=== PATIENT | female | born 1955 | race Caucasian/White ===

== ENCOUNTER → 2022-11-03 09:28 | Outpatient (BNVA) | payer OTHER, SELFPAY | PROVIDERS: PCP Internal Medicine; Visit Provider Internal Medicine Rheumatology | DX: Z13.89 Encounter for screening for other disorder (principal) ==

== ENCOUNTER 2022-11-03 10:39 | Outpatient (REF) | payer OTHER, SELFPAY ==
[2022-11-03 13:18] LABS: MANUAL DIFF FLAG NO
[2022-11-03 13:30] LABS: Basophils Absolute Auto 0.1 X10*3/uL (0.0-0.2); Basophils Percent Auto 1.1 % (0-2); Eosinophils Absolute Auto 0.4 X10*3/uL (0.0-0.4); Eosinophils Percent Auto 6.5 % (0-4); Hematocrit 43.1 % (37.0-47.0); Hemoglobin 14.3 g/dl (12.0-16.0); Imm Gran Abs Auto 0.02 X10*3/uL (0.00-0.03); Imm Gran Pct Auto 0.3 % (0.0-0.4); Lymphocytes Absolute Auto 1.9 X10*3/uL (1.2-4.9); Lymphocytes Percent Auto 30.6 % (20-40); Mean Corpuscular HGB Conc 33.2 g/dl (31.0-35.0); Mean Corpuscular Hemoglobin 30.6 pg (27.0-33.0); Mean Corpuscular Volume 92.3 fL (80.0-98.0); Mean Platelet Volume 10.8 fL (9.4-12.3); Monocytes Absolute Auto 0.5 X10*3/uL (0.1-1.2); Monocytes Percent Auto 8.7 % (2-11); Neutrophils Absolute Auto 3.3 x10*3/uL (2.0-8.3); Neutrophils Percent Auto 52.8 % (45-73); Platelet Count 196 X10*3/uL (160-400); Red Blood Count 4.67 X10*6/uL (4.20-5.50); Red Cell Distribution Width 12.4 % (11.0-16.0); White Blood Count 6.2 X10*3/uL (4.8-10.8)
[2022-11-03 14:13] LABS: Erythrocyte Sedimentation Rate 7 MM/HR (0-20)
[2022-11-03 17:59] LABS: C Reactive Protein 0.26 mg/dL (< or = 0.50); Iron 111 mcg/dL (30-160); Percent Iron Saturation 38 % (15-50); Total Iron Binding Capacity 293 mcg/dL (228-428); Unsaturated Iron Binding 182 ug/dL
== END 2022-11-03 10:40 | disposition home or self-care (01) ==
LOC: HO.10HDL 10:39
PROVIDERS: Visit Provider Internal Medicine Rheumatology
DX: R53.83 Other fatigue (principal); M79.7 Fibromyalgia
CPT/HCPCS: 36415; 83540; 85025; 85652; 86140

== ENCOUNTER 2025-07-26 14:29 | Outpatient (AMB) | payer OTHER, MEDICAID, SELFPAY ==
--- NOTE | 2025-07-26 14:34 | MHC.OFFVIS ---
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 She reports a 5-year history of pain due to arthritis and fibromyalgia, affecting her lower back, neck, bilateral knees, and sacroiliac joints. The pain is most severe in the morning and evenings, rated 8 out of 10, and improves to a 5-6 out of 10 in the afternoon. Exacerbating factors include movements, prolonged standing, bending, cold weather changes, walking, and climbing stairs. She finds some relief with heat, oral medications, and topical medications. Her current medications include Cymbalta and trazodone for fibromyalgia, a muscle relaxer, Tylenol, Fibrocomplex, and diclofenac gel. She previously discontinued gabapentin due to adverse reactions and used to receive injections in her neck from another pain specialist. Past medical history is significant for anxiety, depression, obesity, osteopenia, migraine headaches, and prediabetes. She also has bilateral lower extremity venous insufficiency with edema, managed with compression stockings and Lasix. Associated symptoms include constant fatigue, limited physical activity due to pain, and dyspnea on exertion when climbing stairs. She recently had cervical and lumbar spine x-rays which she reports showed moderate to severe arthritis, foraminal narrowing, bone spurs, and narrowed discs, particularly in the lumbar region. She has not had an MRI, as Neurosurgery recommended physical therapy first. She has orders for physical therapy but has not yet started. Pain Description - Onset: Approximately 5 years. - Location: Lower back, neck, bilateral knees, SI joints, and diffuse pain secondary to fibromyalgia. - Quality: Described as stabbing, aching, and burning. - Severity: 8/10 in the mornings and evenings, improves to 5-6/10 in the afternoon and with medication. - Exacerbating Factors: Movements, weather changes, walking, climbing stairs, and lifting heavy objects. - Relieving Factors: Heat, oral medications, and topical medications provide some improvement. - Radiation: Back pain radiates across the back but not into the legs. - Associated Symptoms/Interference: Pain limits physical activity and causes constant fatigue. Pain Management - Affect: Patient reports constant fatigue and has a history of anxiety and depression. - Analgesia: She is currently taking Cymbalta, trazodone, a muscle relaxer, Tylenol, and uses diclofenac gel. - Adverse Effects: She discontinued gabapentin due to adverse reactions. - Activities of Daily Living: Her pain limits physical activity and ability to lift heavy items. - Aberrant Drug-Related Behaviors: No aberrant behaviors were noted or discussed. [facility] Medical History Hx of ectopic Rupture of medial ligament of right ankle Nondisplaced fracture of fifth metatarsal bone, right foot, subsequent encounter for fracture with routine healing Surgical History H/O section Family History Mother Diabetes Stroke HTN (hypertension) Glaucoma Breast cancer Arthritis Skin cancer Father Heart disease Small bowel problem Diabetes Sister No problems noted. Social History Household Members: Children Alcohol intake: current Patient Tobacco Use Status: Never used Tobacco e-Cigarette/Vaping Use: Never Used Review of Systems Narrative - Constitutional: Reports constant fatigue. - Respiratory: Reports dyspnea after climbing stairs. - Cardiovascular: Reports bilateral lower extremity edema. - Musculoskeletal: Reports chronic pain in the lower back, neck, bilateral knees, and SI joints, as well as diffuse pain from fibromyalgia. - Neurological: Reports an increase in tension headaches. - Psychiatric: Reports a history of anxiety and depression. Const All systems reviewed & are unremarkable except as noted in HPI and below Physical Exam Vital Signs: Last Vital Signs Pulse 83 07/26/25 14:38 BP 161/87 H 07/26/25 14:38 Pulse Ox 99 07/26/25 14:38 Oxygen Delivery Method Room Air 07/26/25 14:38 BMI result Body Mass Index 39.0 General: Appears afebrile. Alert and oriented. Mood and affect appropriate. Follows and participates in conversation appropriately. Respiratory effort is unlabored. No cough. Able to transition from sit to stand unassisted. Mild to moderate pain on rising from a seated position. Ambulates with bilaterally normal heel strike and toe off. Neck Neck: Yes normal visual inspection, Yes no lymphadenopathy, Yes supple, No anterior neck swelling, Yes no JVD, No prominent supraclavicular fat pad and Yes prominent dorsocervical fat pad General: Yes no CVA tenderness Back/Spine/Pelvis Other: Limited cervical and lumbar ROM due to pain. Pain is elicited with forward flexion of the lumbar spine. Range of cervical motion shows pain with cervical extension, mainly on the right side, and a pulling sensation with flexion. 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 Discomfort reported in the knee and hip with active range of motion. Straight leg raise test elicits pain in the hamstrings and back bilaterally. Demonstrates 5/5 strength of quadriceps bilaterally as well as flexion/dorsiflexion of bilateral feet against resistance. 2+ pedal pulses bilaterally. +1 patellar and achilles reflexes bilaterally. Facet loading test positive bilaterally. [place]?s, Pelvic compression and Stinchfield tests are negative bilaterally. No groin pain with I/E hip rotations. Valsalva maneuver negative. Back: no CVA tenderness Cervical Spine: cervical ROM normal, cervical muscular tenderness, pain with cervical ROM, Cervical spine tenderness and No step off deformity Thoracic/Lumbar Spine: thoracic and lumbar spine normal to inspection, No Thoracic/lumbar spine scar(s), Lasegue's sign negative, straight leg raise negative bilaterally, pain with thoraco-lumbar ROM, thoraco-lumbar ROM limited, No thoracic spinal tenderness and lumbar spinal tenderness at L4 and at L5 Sacroiliac joints: bilaterally nontender Extrem General: Yes capillary refill normal, Yes no clubbing, cyanosis or edema and Yes no calf tenderness Results Reviewed Results Reviewed: - Imaging: Patient reports recent cervical and lumbar spine X-rays showed moderate to severe arthritis, foraminal narrowing, bone spurs, and narrowed discs, especially in the lumbar area. - Labs: Patient reports a status of prediabetes, noting that her A1c is normal but her blood sugar was previously high. Assessment & Plan Assessment & Plan (1) Osteoarthritis of lumbar spine: Code(s): M47.816 - Spondylosis without myelopathy or radiculopathy, lumbar region Category: Medical (2) Fibromyalgia: Code(s): M79.7 - Fibromyalgia Category: Medical (3) Obesity: Code(s): E66.9 - Obesity, unspecified Category: Medical (4) Cervical spondylosis: Code(s): M47.812 - Spondylosis without myelopathy or radiculopathy, cervical region Category: Medical (5) Cervicogenic headache: Code(s): G44.86 - Cervicogenic headache Category: Medical (6) Vertebrogenic low back pain: Code(s): M54.51 - Vertebrogenic low back pain Category: Medical (7) Muscle spasms of neck: Code(s): M62.838 - Other muscle spasm Category: Medical Plan The plan is to obtain the patient's recent cervical and lumbar spine x-ray reports from [facility]. The patient will begin a course of physical therapy for both her neck and back, for which she already has orders. A follow-up appointment will be scheduled after she completes PT. Interventional pain management options were discussed as the next step, depending on the response to conservative therapy. For arthritic pain, medial branch blocks may be performed as a diagnostic procedure; a positive response would make her a candidate for radiofrequency ablation (RFA). Peripheral nerve stimulation (Sprint) was also presented as an option, particularly for her neck and associated cervicogenic headaches. The Intracept procedure for discogenic pain was discussed too. She was provided with informational brochures on the discussed procedures and encouraged to focus on weight optimization for her joint health. All questions and concerns have been answered and patient agreed with the treatment plan. Follow up after PT and sooner as needed. Patient was informed and verbally consented to the use of an ambient scribe for clinic note documentation during this visit. Coding Level of Care Code New Pt Level 4 (39558) Diagnoses Osteoarthritis of lumbar spine M47.816 Fibromyalgia M79.7 Obesity E66.9 Cervical spondylosis M47.812 Cervicogenic headache G44.86 Vertebrogenic low back pain M54.51 Muscle spasms of neck M62.838
[2025-07-26 14:38] VITALS: BP 161/87; PULSE 83; O2SAT 99; BMI 39.0
--- OUTSIDE RECORDS SUMMARY | 2025-07-26 18:36 | XMS_ITS | Clinical Summary ---
Author Organization [facility] [address] [place] [address] [place] [address] Phone Care Team Providers Care General Operations Manager Name Role Phone Zeke Zuniga MD Primary Care Provider Allergies No known active allergies Medications acetaminophen (TYLENOL 8 HOUR) 650 mg 8 hr tablet Take 1 tablet (650 mg total) by mouth every 8 (eight) hours if needed. Active melatonin 10 mg tablet Take 2 tablets (20 mg total) by mouth at bedtime. Active multivit-min/ir on/folic acid/K (ADULTS MULTIVITAMIN ORAL) Take 1 tablet by mouth. Active omeprazole (PriLOSEC) [address] capsule Take 1 capsule (20 mg total) by mouth 1 (one) time each day. 09/28/19 15 Active TURMERIC ORAL Take 2,000 mg by mouth 1 (one) time each day. Active rizatriptan (MAXALT) 10 mg tablet Take 1 tablet (10 mg total) by mouth 1 (one) time if needed for migraine. May repeat in 2 hours if needed (from [facility]) 09/26/19 25 Active levETIRAcetam (KEPPRA) 500 mg tablet Take 2.5 tablets (1,250 mg total) by mouth 2 (two) times a day. (from [facility]) 09/26/19 25 Active propranoloL (INDERAL) 10 mg tablet Take 3 tablets (30 mg total) by mouth 2 (two) times a day. (from [facility]) 09/26/19 25 Active calcium carbonate-srikanth calciferol (Calcium 500 + D) 500 mg-10 mcg (400 unit) per tablet Take 1 tablet by mouth 2 (two) times a day. 180 tablet 1 09/26/19 25 Active atorvastatin (LIPITOR) 10 mg tablet Take 1 tablet (10 mg total) by mouth 1 (one) time each day. 90 tablet 1 01/30/20 25 Active diclofenac (VOLTAREN) 1 % topical gel Apply 2 g topically 2 (two) times a day if needed (pain). 100 g 3 01/30/20 25 Active furosemide (LASIX) 20 mg tablet Take 1 tablet (20 mg total) by mouth 1 (one) time each day if needed (leg swelling). 30 each 3 01/30/20 25 026 Active amLODIPine (NORVASC) 5 mg tablet TAKE 1 TABLET BY MOUTH EVERY DAY ALONG WITH 2.5 MG 90 tablet 1 03/21/20 25 Active amLODIPine (NORVASC) 2.5 mg tablet Take 1 tablet (2.5 mg total) by mouth 1 (one) time each day. Please take with 5 mg tablets for total of 7.5 mg daily. 90 tablet 1 03/21/20 25 Active traZODone (DESYREL) 100 mg tablet Take 1 tablet (100 mg total) by mouth at bedtime. at bedtime 90 tablet 1 06/06/20 25 Active cyclobenzaprine (FLEXERIL) 10 mg tablet Take 1 tablet (10 mg total) by mouth at bedtime as needed for muscle spasms. 30 tablet 07/02/20 25 026 Active DULoxetine (CYMBALTA) [address] capsule Take 1 capsule (20 mg total) by mouth 2 (two) times a day. 180 capsule 1 07/11/20 25 Active DULoxetine (CYMBALTA) [address] capsule Take 1 capsule (20 mg total) by mouth 2 (two) times a day. 180 capsule 1 01/09/20 25 025 Discontinued(Re order) cyclobenzaprine (FLEXERIL) 5 mg tablet TAKE 1 TABLET(5 MG) BY MOUTH AT BEDTIME NEEDED FOR MUSCLE SPASMS 30 tablet 06/19/20 25 025 Discontinued(Do se adjustment) tirzepatide (Mounjaro) 2.5 mg/0.5 mL injectionIndica tions:Class 2 obesity due to excess calories with body mass index (BMI) of 38.0 to 38.9 in adult, unspecified whether serious comorbidity present,Prediab etes Inject 0.5 mL (2.5 mg total) under the skin every 7 (seven) days. 2 mL 07/11/20 25 025 Discontinued amitriptyline (ELAVIL) 25 mg tablet Take 1 tablet (25 mg total) by mouth. 025 Discontinued sertraline (ZOLOFT) 50 mg tablet Take 1.5 tablets (75 mg total) by mouth 1 (one) time each day. 04/25/20 24 025 Discontinued Active Problems Problem Noted Date Diagnosed Date Primary hypertension 06/26/2024 Assessment & Plan (01/29/2025 8:23 PM EDT): Orders: Comprehensive metabolic panel; Future Assessment & Plan (09/15/2024 9:47 AM EST): Pressure in the office today stable. She will continue with amlodipine 7.5 mg daily. Continue to check blood pressure regularly call office if any issues. Spondylosis of cervical peter on without myelopathy or radiculopathy 08/20/2023 Assessment & Plan (07/20/2025 4:15 PM EST): Patient describes approximately 4 year history of neck pain that radiates to the shoulders, pain right upper trapezius, tenderness left lateral shoulder. She denies any radicular arm pain, numbness tingling, weakness. No particular inciting event. Subjectively she feels like her arms and legs are weak, is not sure if it is related to her fibromyalgia which was officially diagnosed about 5 years ago. She has tried [id number] conservative treatments, goes for massages twice a month which are very helpful. Patient had C-spine x-rays 07/02/2025 that showed disc space narrowing at C4-5 >C5-6 and C6-7 with associated mild anterior endplate spurring. Multilevel facet arthropathy. I reviewed x-rays with patient on the computer. Ms. Jendrysik has chronic neck pain and stiffness, we talked about conservative treatment options for her arthritis like PT, aquatic PT, acupuncture, injections. She would like to start with PT, cannot afford acupuncture [id number] and is not covered by her insurance. Prescription given to patient. I asked her to call with update after PT, if she is not getting better I will order cervical MRI. Assessment & Plan (01/29/2025 8:23 PM EDT): Spondylosis of lumbar region without myelopathy or radiculopathy 08/20/2023 Assessment & Plan (07/20/2025 4:26 PM EST): Patient states her low back pain is fairly equal but probably worse than her neck pain. She would rated her pain 7/10. She recalls years ago having musculoskeletal injury after being hard at work, had spasm for a while. However in the last 5 years she has had more severe chronic back pain, denies radicular leg pain, numbness tingling, notes subjective weakness in the legs. Sitting flares up her pain, she does well when she is partially reclined, however pain much worse with bending, lifting, standing and walking. In the past she tried pool exercise classes which seem to flareup some of her low back pain. She has tried Tylenol arthritis which takes the edge off her pain, Flexeril as needed, heat, lidocaine patches with no significant improvement. In the past she tried gabapentin but had negative side effects, when she was on it did not see improvement in her symptoms. She is on Cymbalta for her fibromyalgia, a couple days went without it and noted worsening symptoms, knows it is doing something to help her pain. She had lumbar spine x-rays 07/02/2025 that shows Moderate/severe disc space narrowing at L2-3 through L5-S1. Multilevel endplate spurring. Multilevel facet arthropathy. I reviewed images with patient on the computer. Patient has chronic low back pain worsening with time, on x-ray multilevel degenerative changes, we talked about conservative treatment options for her arthritis like PT, aquatic PT, acupuncture, injections. Prescription given to patient. We talked about the importance of doing the PT exercises and stretches at home as well. I asked her to call with update after PT, if she is not getting better I will order lumbar MRI. Patient describes symptoms consistent with vertebrogenic back pain, if we get MRI we we will need to check for Modic changes, see if she is a candidate for Intracept procedure. Assessment & Plan (01/29/2025 8:23 PM EDT): Mixed hyperlipidemia 07/24/2021 Assessment & Plan (01/29/2025 8:23 PM EDT): Orders: Comprehensive metabolic panel; Future Lipid panel with reflex to direct LDL; Future Fibromyalgia 04/13/2021 Overview (05/16/2024): Rheumatology evaluation 2020 Assessment & Plan (01/29/2025 8:23 PM EDT): Orders: Comprehensive metabolic panel; Future Assessment & Plan (09/15/2024 9:47 AM EST): Patient is currently on Cymbalta 40 mg daily. She was previously referred to rheumatology and I gave her the number to schedule an appointment. Patient was encouraged to increase routine activity. Orders: Thyroid stimulating hormone with reflex to free t4 and free t3; Future CBC and differential; Future Magnesium; Future Comprehensive metabolic panel; Future Hemoglobin A1c; Future Nondisplaced fracture of fif th metatarsal bone, right foot, subsequent encounter for fracture with routine healing 01/10/2021 Sprain of anterior talofibular ligament of right ankle 01/10/2021 Obesity (BMI 30-39.9) 05/06/2020 Anxiety and depression 02/14/2018 Assessment & Plan (01/29/2025 8:23 PM EDT): Orders: Comprehensive metabolic panel; Future Assessment & Plan (09/15/2024 9:47 AM EST): Today depression is under control. I will decrease Zoloft from 75 to 50 mg daily. She will reach out to the office if she has any issues with decreased dose. Constipation 02/05/2016 Insomnia 02/05/2016 Assessment & Plan (01/29/2025 8:23 PM EDT): Orders: Comprehensive metabolic panel; Future GERD (gastroesophageal reflux disease) 5 Migraines 09/18/2014 Overview (05/16/2024): Sleep study - 01/18/15 - no evidence of sleep disordered breathing, sleep efficiency of 98% Dr. Lewis - 02/14/15 - status post injections or multifocal muscle spasms, continue Keppra, Maxalt; Medrol Dosepak once or twice a year as needed 07/16/15-trigger point injections; follow-up 4 weeks 08/20/15 - continue stretching and medications; follow-up 6 months 11/17/16 - continue stretching, increase levetiracetam, consider Remeron and decreasing trazodone; follow-up in 09/30/17 - stretching, increase levetiracetam, consider starting mirtazapine and decreasse trazodone; f/u 6 months 04/05/18 - continue medications; follow-up 6 months 05/17/18 - migraine flare; nerve block; increase levetiracetam; follow-up in 6 months 06/02/18 - her head CT was normal; follow-up 6 months 11/29/18 - Relpax 40 mg as needed for migraines, continue other medications; follow-up 6 months 09/04/2019 - Aimovig 140 mg subcutaneous injection, Maxalt for breakthrough headaches; follow-up 4 months Assessment & Plan (01/29/2025 8:23 PM EDT): Orders: Comprehensive metabolic panel; Future Osteopenia 09/18/2014 Overview (05/16/2024): 11/21 - osteopenia; drug holiday off of Fosamax, repeat bone density examination in 2 years 05/25 - osteopenia Assessment & Plan (01/29/2025 8:23 PM EDT): Orders: Comprehensive metabolic panel; Future Encounters Date Type Department Care Team Description 07/26/2025 Telephone Bariatric Surgery - [address] [place] [phone] Dwight Irizarry MD 07/20/2025 2:45 PM EST Office Visit Neurosurgery [facility] [address] [facility] [address] [place] [phone] Kelly Mckeon PA Spondylosis of cervical region without myelopathy or radiculopathy (Primary Dx); Spondylosis of lumbar region without myelopathy or radiculopathy 07/11/2025 3:00 PM EST Office Visit Bariatric Surgery [facility] [address] [facility] [address] [place] [address] Dwight Irizarry MD Class 2 obesity due to excess calories with body mass index (BMI) of 38.0 to 38.9 in adult, unspecified whether serious comorbidity present (Primary Dx); Prediabetes 07/03/2025 Results Follow-Up Adult [address] [phone] Key Rivera PA 07/02/2025 11:02 AM EST - 07/02/2025 11:59 PM EST Hospital Encounter [address] [phone] Spondylosis of cervical region without myelopathy or radiculopathy; Spondylosis of lumbar region without myelopathy or radiculopathy Discharge Disposition: Home or Self Care 07/02/2025 11:02 AM EST - 07/02/2025 11:59 PM EST Hospital Encounter [address] [phone] Spondylosis of cervical region without myelopathy or radiculopathy; Spondylosis of lumbar region without myelopathy or radiculopathy Discharge Disposition: Home or Self Care 07/02/2025 10:30 AM EST Office Visit Adult [address] [phone] Key Rivera PA Primary hypertension (Primary Dx); Mixed hyperlipidemia; Fibromyalgia; Anxiety and depression; Chronic migraine with aura without status migrainosus, not intractable; Osteopenia, unspecified location; Spondylosis of cervical region without myelopathy or radiculopathy; Spondylosis of lumbar region without myelopathy or radiculopathy; Obesity, morbid ([facility] V24, [facility] V28) 06/05/2025 10:00 AM EDT Clinical Support [address] [phone] Visit for suture removal (Primary Dx) 05/24/2025 10:30 AM EDT Procedure visit [address] [phone] Chinedu Duarte MD Pilar cyst (Primary Dx) 05/11/[address] [phone] Chinedu Duarte MD from Last 3 Months Immunizations Immunization Administration Dates Next Due Influenza Quadravalent, MDCK , 0.5ml, preservative free (Flucelvax) 6mo and older 04/14/2019,08/19/2018 Influenza Quadravalent, MDCK , 0.5ml, with preservative (Flucelvax) 6mo and older 04/21/2017 Influenza trivalent, 0.5mL ( Fluzone High-dose) 65yo and older 04/20/2023,05/11/2022,05/06/2020 Influenza trivalent, with pr eservative (Fluzone; Afluria) 6mo and older 06/11/2015 Influenza, Unspecified 07/13/2021 Pfizer (ages 12 & older) Bivalent, COVID-19 11/01/2022 Pneumococcal conjugate 13 va lent (Prevnar 13, PCV13) 2mo and older 04/01/2020 Pneumococcal conjugate 20 va lent (Prevnar 20, PCV 20) 2mo and older 06/08/2024 Pneumococcal polysaccharide 23 valent (Pneumovax 23) 2yo and older 07/24/2021 RSV, bivalent, protein subun it RSVpreF, 0.5mL, Preservative Free (ABRYSVO) 50yo and older or 32 through 36 wks of 06/08/2024 Td Tetanus diptheria, preser vative free (Tenivac) 7yo and older 01/29/2025 Tdap Tetanus diptheria acell ular pertussis (Boostrix; Adacel) 7yo and older 11/09/2014 Zoster Live 06/11/2015 Zoster recombinant (Shingrix ) 19yo and older 06/14/2022 Surgical History Surgery Date Site/Laterality Comments SECTION PROCEDURE: HISTORICAL DELIVERY; COMMENT: 3 times ECTOPIC SURGERY PROCEDURE: HISTORICAL ECTOPIC SURGERY COLONOSCOPY 2005 PROCEDURE: HISTORICAL COLONOSCOPY; COMMENT: States it was normal OTHER SURGICAL HISTORY 03/13/16 PROCEDURE: COLON CA SCRN NOT HI RSK IND; COMMENT: tics; repeat in 10 yrs BREAST BIOPSY Right fna-cyst Medical History Medical History Date Comments Migraines DX:Migraines Arthritis DX:Arthritis; CO MMENT: feet, knees, hands Hyperlipidemia Anxiety and depression Hypertension Family History Medical History Relation Name Comments No Known Problems Daughter Other: heart disease Father bowel p roblems Breast cancer Mother age 59 arthritis Diabetes Mother age 59 stroke, HTN, ul cers, glaucoma, breast Ca Other: skin cancer Mother age 59 Diabetes Sister 1 No Known Problems Sister 2 No Known Problems Son 1 No Known Problems Son 2 Relation Name Status Comments Daughter Alive Father Maternal Grandfather Maternal Grandmother Mother age 59 Paternal Grandfather Paternal Grandmother Sister 1 Alive Sister 2 Alive Son 1 Alive Son 2 Alive Social History Tobacco Use Types Packs/Day Years Used Date Smoking Tobacco: Never Smokeless Tobacco: Never Tobacco Cessation:Counseling Given: Not Answered Alcohol Use Standard Drinks/Week Comments Yes 0 (1 standard drink = 0.6 oz pur e alcohol) Housing Instability Answer Date Recorde d Are you worried that in the next 2 months you may not have stable housing? No 01/29/2025 Food Access & Nutrition Answer Date Rec orded Do you have access to a vari ety of food including fruits and vegetables? No 01/29/2025 Access to Healthcare Answer Date Record ed Within the last 3 months, ho w many times did you visit the emergency department for your medical care? 0 01/29/2025 Health Literacy Answer Date Recorded How often do you need to hav e someone help you when you read instructions, pamphlets, or other written material from your doctor or pharmacy? Never 01/29/2025 Caregiver: How often do you need to have someone help you when you read instructions, pamphlets, or other written material from your doctor or pharmacy? Not on file 01/29/2025 Financial Risk Answer Date Recorded How hard is it for you to pa y for the very basics like food, housing, medical care, and air conditioning / heating? Not very hard 01/29/2025 Transportation Answer Date Recorded Has the lack of transportati on kept you from meetings, work, or from getting things needed for daily living? No Has the lack of transportati on kept you from medical appointments or from getting medications? No 01/29/2025 Social Isolation Answer Date Recorded How often do you feel lonely or isolated from th ose around you? Never 01/29/2025 Food Risk Answer Date Recorded Within the past 12 months we worried whether our food would run out before we got money to buy more. Never true 01/29/2025 Within the past 12 months th e food we bought just didn't last and we didn't have money to get more. Never true 01/29/2025 Dependent Care Answer Date Recorded Do you need help finding or paying for care for your loved ones. For example, child development specialist or elderly care for an older adult? No 01/29/2025 Education Answer Date Recorded Do you think completing more education or training, like finishing a GED, going to college, or learning a trade, would be helpful for you? No 01/29/2025 Employment and Income Answer Date Recor ded During the last four weeks, have you been actively looking for work? No 01/29/2025 Living Situation Answer Date Recorded What is your living situation? Unrecognized valu e 01/29/2025 Comments No Sex and Gender Information Value Date Recorded Sex Assigned at Not on file Legal Sex Female 8:30 PM EST Gender Identity Female 06/14/2024 8:53 AM EST Sexual Orientation Straight 06/14/2024 8: 53 AM EST Obstetrics History Para Term AB IAB SAB Ectopic Multiple Livin g Live Births 3 3 3 3 Date Outcome GA Total Labor Labor/2nd/3rd Weight Sex Type Anes PTL Yuko A1 A5 Name Clin Term Term Term Last Filed Vital Signs Vital Sign Reading Time Taken Comments Blood Pressure 129/73 07/11/2025 3:02 PM EST Pulse 97 07/11/2025 3:02 PM EST Temperature 36.6 C (97.8 F) 07/11/2025 3:02 PM EST Respiratory Rate 16 01/29/2025 3:38 PM EDT Oxygen Saturation - - Inhaled Oxygen Concentration - - Weight 102 kg (225 lb) 07/20/2025 2:46 PM EST Height 162.6 cm (5' 4 ) 07/20/2025 2:46 PM EST Body Mass Index 38.62 07/20/2025 2:46 PM EST Plan of Treatment Upcoming Encounters Date Type Department Care Team (Late st Contact Info) Description 10/17/2025 12:30 PM EDT Consult Bariatric Surgery - [place] [address] [phone] Concepcion Bartlett, RD [address] [phone] 11/27/2025 2:30 PM EDT Office Visit Bariatric Surgery - [address] [phone] Dwight Irizarry MD [address] [place] [phone] 01/01/2026 11:00 AM EDT Office Visit Adult Medicine [address] [phone] Zeke Zuniga MD [address] [place] [phone] Health Maintenance Due Date Last Done Comments Zoster Vaccines (2 of 2) 08/09/2022 06/14/2022, 110 10/2014 Cervical Cancer Screening: HPV 07/18/2025 07/18/2020 COVID-19 Vaccine (8 - Pfizer risk 2024- season) 2025 06/28/2025, 06/08/2024, 10/19/2023, Additional history exists [place] Risk Assessment 01/29/2026 01/29/2025 Medicare Annual Wellness Visit 01/29/2026 01/29/2025 Social Influencers of Health Screening 01/29/2026 01/29/2025 Colorectal Cancer Screening: Colonoscopy 03/13/2026 03/13/2016 Hypertension/CHF/CAD Annual BMP Blood Test 03/13/2026 03/13/2025, 06/26/2024, 08/27/2023 Breast Cancer Screening 12/15/2026 12/16/19 25, 06/21/2023, 06/19/2022, Additional history exists Cholesterol Screening (Lipid Panel) 03/13/2030 03/13/2025, 08/27/2023 Osteoporosis Screening (Bone Density Screening) 12/19/2034 12/19/2024, 08/11/2021, 05/25/2017 DTaP,Tdap,and Td Vaccines (3 - Td or Tdap) 01/29/2035 01/29/2025, 11/09/2014 Hepatitis C Screening Completed 11/09/2014 Pneumococcal Vaccine: 50+ Years Completed 06/08/2024, 07/24/2021, 04/01/2020 RSV Immunization Adult Patients Completed 06/08/2024 Depression Screening Completed 01/29/2025, 04/25/20 Influenza Vaccine Completed 06/28/2025, , 04/20/2023, Additional history exists HIB Vaccines Aged Out No longer eligi ble based on patient's age to complete this topic HPV Vaccines Aged Out No longer eligi ble based on patient's age to complete this topic Hepatitis A Vaccines Aged Out No long er eligible based on patient's age to complete this topic Hepatitis B Vaccines Aged Out No long er eligible based on patient's age to complete this topic IPV Vaccines Aged Out No longer eligi ble based on patient's age to complete this topic MMR Vaccines Aged Out No longer eligi ble based on patient's age to complete this topic Meningococcal ACWY Vaccine Aged Out N o longer eligible based on patient's age to complete this topic Meningococcal B Vaccine Aged Out No l onger eligible based on patient's age to complete this topic RSV Immunization Patients Under 20 months Aged Out No longer eligible based on patient's age to complete this topic Varicella Vaccines Aged Out No longer eligible based on patient's age to complete this topic Procedures Procedure Name Priority Date/Time Associated Diagnosis Comments XR CERVICAL SPINE 4-5 VIEWS Routine 07/02/2025 11:17 AM EST Spondylosis of cervical region without myelopathy or radiculopathy Spondylosis of lumbar region without myelopathy or radiculopathy XR LUMBAR SPINE 4+ VIEWS Routine 07/02/2025 11:17 AM EST Spondylosis of cervical region without myelopathy or radiculopathy Spondylosis of lumbar region without myelopathy or radiculopathy SUTURE REMOVAL Routine 06/05/2025 9:54 AM EDT Visit for suture removal TISSUE EXAM Routine 05/24/2025 10:30 AM EDT Pilar cyst COMPREHENSIVE METABOLIC PANEL Routine 03/13/2025 9:33 AM EDT Primary hypertension Mixed hyperlipidemia Osteopenia, unspecified location Chronic migraine with aura without status migrainosus, not intractable Anxiety and depression Fibromyalgia Insomnia, unspecified type Encounter for subsequent annual wellness visit (AWV) in Medicare patient LIPID PANEL WITH REFLEX TO DIRECT LDL Routine 03/13/2025 9:33 AM EDT Mixed hyperlipidemia Encounter for subsequent annual wellness visit (AWV) in Medicare patient BD BONE DENSITY DXA AXIAL SKELETON Routine 12/19/2024 2:36 PM EDT Encounter for osteoporosis screening in asymptomatic postmenopausal patient MG MAMMO DIGITAL SCREENING W SHAI BILAT Routine 12/15/2024 3:24 PM EDT Encounter for screening mammogram for malignant neoplasm of breast DEPRESSION SCREENING Routine 04/25/2024 HPV Routine 07/18/2020 COLONOSCOPY Routine 03/13/2016 HEPATITIS C SCREENING Routine 11/09/2014 from Last 3 Months or Most Recently Relevant to Health Maintenance Results * XR Cervical Spine 4-5 Views (07/02/2025 11:17 AM EST) Anatomical Region Laterality Modality Spine, C-spine Radiographic Ольга ging 07/02/2025 1:42 PM EST Impressions 07/02/2025 1:48 PM EST Multilevel degenerative changes with bilateral neural foraminal encroachment. -------- FINAL REPORT -------- Dictated By: Etelvina Campbell Dictated Date: 07/02/2025 13:42 ET Assigned Physician: Etelvina Campbell Reviewed and Electronically Signed By: Etelvina Campbell Signed Date: 07/02/2025 13:48 ET Workstation ID: [id number] Transcribed By: Self Edit Transcribed Date: 07/02/2025 13:42 ET Narrative 07/02/2025 1:48 PM EST EXAM: Cervical spine x-ray HISTORY: Persistent neck pain. No recent trauma. COMPARISON: 05/11/2022 FINDINGS: 4 views performed. Cervical spine is visualized through C7 on the lateral projection. No compression deformities. Moderate disc space narrowing at C4-5 and milder at C5-6 and C6-7 with associated mild anterior endplate spurring. Multilevel uncovertebral spurring and facet arthropathy. On the right, mild to moderate neural foraminal encroachment at C5-6 and milder at C4-5 and C6-7. On the left, moderate neural foraminal encroachment at C6-7 and milder at C4-5 and C5-6. Atlantoaxial distance is within normal limits. No abnormal thickening of the prevertebral soft tissues. Procedure Note Etelvina Campbell MD - 07/02/2025 EXAM: Cervical spine x-ray HISTORY: Persistent neck pain. No recent trauma. COMPARISON: 05/11/2022 FINDINGS: 4 views performed. Cervical spine is visualized through C7 on the lateral projection. Nocompression deformities. Moderate disc space narrowing at C4-5 and milder at C5-6 and C6-7 withassociated mild anterior endplate spurring. Multilevel uncovertebralspurring and facet arthropathy. On the right, mild to moderate neural foraminal encroachment at C5-6 andmilder at C4-5 and C6-7. On the left, moderate neural foraminalencroachment at C6-7 and milder at C4-5 and C5-6. Atlantoaxial distance is within normal limits. No abnormal thickening ofthe prevertebral soft tissues. IMPRESSION: Multilevel degenerative changes with bilateral neural foraminalencroachment. -------- FINAL REPORT -------- Dictated By: Etelvina Campbell Dictated Date: 07/02/2025 13:42 ET Assigned Physician: Etelvina Campbell Reviewed and Electronically Signed By: Etelvina Campbell Signed Date: 07/02/2025 13:48 ET Workstation ID: [id number] Transcribed By: Self Edit Transcribed Date: 07/02/2025 13:42 ET Key Ymaileth Amadeo Rivera PA IMG XR PROCEDURES Final Result * XR Lumbar Spine 4+ Views (07/02/2025 11:17 AM EST) Anatomical Region Laterality Modality Spine, L-spine Radiographic Ольга ging 07/02/2025 1:48 PM EST Impressions 07/02/2025 1:53 PM EST Moderately severe multilevel degenerative changes. -------- FINAL REPORT -------- Dictated By: Etelvina Campbell Dictated Date: 07/02/2025 13:48 ET Assigned Physician: Etelvina Campbell Reviewed and Electronically Signed By: Etelvina Campbell Signed Date: 07/02/2025 13:53 ET Workstation ID: [id number] Transcribed By: Self Edit Transcribed Date: 07/02/2025 13:48 ET Narrative 07/02/2025 1:53 PM EST EXAM: Lumbar spine x-ray HISTORY: Persistent lumbar back pain. COMPARISON: 05/11/2022 FINDINGS: 4 views of the lumbar spine were performed. 5 lumbar type vertebral bodies. No new compression deformities. Mild levoscoliosis of the lower spine. Moderate/severe disc space narrowing at L2-3 through L5-S1. Multilevel endplate spurring. No evidence of spondylolysis or spondylolisthesis. Multilevel facet arthropathy. Procedure Note Etelvina Campbell MD - 07/02/2025 EXAM: Lumbar spine x-ray HISTORY: Persistent lumbar back pain. COMPARISON: 05/11/2022 FINDINGS: 4 views of the lumbar spine were performed. 5 lumbar type vertebral bodies. No new compression deformities. Mildlevoscoliosis of the lower spine. Moderate/severe disc space narrowing atL2-3 through L5-S1. Multilevel endplate spurring. No evidence ofspondylolysis or spondylolisthesis. Multilevel facet arthropathy. IMPRESSION: Moderately severe multilevel degenerative changes. -------- FINAL REPORT -------- Dictated By: Etelvina Campbell Dictated Date: 07/02/2025 13:48 ET Assigned Physician: Etelvina Campbell Reviewed and Electronically Signed By: Etelvina Campbell Signed Date: 07/02/2025 13:53 ET Workstation ID: [id number] Transcribed By: Self Edit Transcribed Date: 07/02/2025 13:48 ET Key ZAMUDIO IMG XR PROCEDURES Final Result * SUTURE REMOVAL (06/05/2025 9:54 AM EDT) Carrol Prince MA - 06/05/2025 9:54 AM EDT Carrol Trinh MA 06/05/2025 9:54 AM Suture Removal Date/Time: 06/05/2025 9:54 AM Performed by: Carrol Trinh MA Authorized by: Chinedu Duarte MD Location: Location: Head/neck Head/neck location: Scalp Procedure details: Wound appearance: No signs of infection, good wound healing, clean, nonpurulent and nontender Number of sutures removed: 3 Post-procedure details: Post-removal: No dressing applied Procedure completion: Tolerated Chinedu Duarte MD IN CLINIC/BEDSIDE ORDERABLE S Final Result * Tissue exam (05/24/2025 10:30 AM EDT) Final Diagnosis Skin, scalp-excisio n: -PILAR CYST 05/28/2025 9:54 AM EDT [facility] at 0954 EDT Clinical Information Pilar cyst (L72.11) 05/28/2025 9:54 AM EDT [facility] Gross Description A. Scalp, cyst: Labeled scalp . Received in formalin is a focally disrupted, 2.0 x 1.5 x 1.0 cm rubbery brunner, smooth-walled unilocular cyst. The the cyst contains a small amount of soft, brunner-yellow friable debris. Due to the disruption, the margins are not inked. The specimen is submitted entirely in two cassettes, two pieces each. KR 05/28/2025 9:54 AM EDT [facility] Disclaimer Unless otherwise specified, all tissue is 10% NB formalin fixed and paraffin embedded. 05/28/2025 9:54 AM EDT [facility] Tissue Scalp structure / Unknown Non-blood Collection / Unknown 05/24/2025 10:30 AM EDT 05/24/2025 10:34 AM EDT us Chinedu Duarte MD LAB PATHOLOGY ORDERABLES Fi nal Result [facility] [address] [place] [address], * (ABNORMAL) Lipid panel with reflex to direct LDL (03/13/2025 9:33 AM EDT) Cholesterol 173 0 - 200 mg/dL LAB CHEMISTRY METHOD 03/13/2025 2:23 PM T [facility] Triglycerides 152(H) 0 - 150 mg/dL LAB CHEMISTRY METHOD 03/13/2025 2:23 PM T [facility] HDL 68 >=40 mg/dL LAB CHEMISTRY METHOD 03/13/2025 2:23 PM T [facility] LDL Calculated 75 0 - 100 mg/dL LAB CHEMISTRY METHOD 03/13/2025 2:23 PM T [facility] Comment:Estimated LDL Calcul ated using equation: Total cholesterol - HDL cholesterol - (Triglycerides/5) VLDL Cholesterol [place] 30.4 mg/dL LAB CHEMISTRY METHOD 03/13/2025 2:23 PM T [facility] Non HDL Chol. (LDL+VLDL) 105 <145 mg/dL LAB CHEMISTRY METHOD 03/13/2025 2:23 PM [facility] Chol/HDL Ratio 2.5 0.0 - 4.4 LAB CHEMISTRY METHOD 03/13/2025 2:23 PM [facility] Blood Venous blood specimen / Unknown Venipuncture / Unknown 03/13/2025 9:33 AM EDT 03/13/2025 9:33 AM EDT us Zeke Zuniga MD LAB BLOOD ORDERABLES Final Result [facility] [address] [place] [address], [place] [phone] * (ABNORMAL) Comprehensive metabolic panel (03/13/2025 9:33 AM EDT) Sodium 138 133 - 145 mmol/L LAB CHEMISTRY METHOD 03/13/2025 2:37 PM [facility] Potassium 4.8 3.5 - 5.5 mmol/L LAB CHEMISTRY METHOD 03/13/2025 2:37 PM [facility] Chloride 105 96 - 110 mmol/L LAB CHEMISTRY METHOD 03/13/2025 2:37 PM [facility] CO2 28 21 - 32 mmol/L LAB CHEMISTRY METHOD 03/13/2025 2:37 PM [facility] Anion Gap 5 3 - 11 LAB CHEMISTRY METHOD 03/13/2025 2:37 PM [facility] Glucose 109(H) 70 - 100 mg/dL LAB CHEMISTRY METHOD 03/13/2025 2:37 PM [facility] BUN 17 5 - 25 mg/dL LAB CHEMISTRY METHOD 03/13/2025 2:37 PM [facility] Creatinine 0.90 0.50 - 1.10 mg/dL LAB CHEMISTRY METHOD 03/13/2025 2:37 PM [facility] eGFR 69 >=60 mL/min/1. 73m2 LAB CHEMISTRY METHOD 03/13/2025 2:37 PM EDT [facility] Comment:Calculation based on the Chronic Kidney Disease Epidemiology Collaboration (CKD-EPI) equation refit without adjustment for race. BUN/Creatinine Ratio 18.9 LAB CHEMISTRY METHOD 03/13/2025 2:37 PM EDT [facility] Calcium 10.0 8.5 - 10.5 mg/dL LAB CHEMISTRY METHOD 03/13/2025 2:37 PM EDT [facility] AST (SGOT) 24 10 - 42 unit/L LAB CHEMISTRY METHOD 03/13/2025 2:37 PM [facility] ALT (SGPT) 38 10 - 60 unit/L LAB CHEMISTRY METHOD 03/13/2025 2:37 PM [facility] Alkaline Phosphatase 99 42 - 121 unit/L LAB CHEMISTRY METHOD 03/13/2025 2:37 PM EDT [facility] Total Protein 7.0 6.0 - 8.0 g/dL LAB CHEMISTRY METHOD 03/13[facility]2025 2:37 [facility] Albumin 4.1 3.2 - 5.0 g/dL LAB CHEMISTRY METHOD 03/13/2025 2:37 PM [facility] Total Bilirubin 0.5 0.0 - 1.4 mg/dL LAB CHEMISTRY METHOD 03/13/2025 2:37 PM EDT [facility] Blood Venous blood specimen / Unknown Venipuncture / Unknown 03/13/2025 9:33 AM EDT 03/13/2025 9:33 AM EDT us Zeke Zuniga MD LAB BLOOD ORDERABLES Final Result [facility] [address] [place] [address], * BD Bone Density DXA Axial Skeleton (12/19/2024 2:36 PM EDT) Anatomical Region Laterality Modality Wrist, Hip, L-spine Bone Densito metry 12/19/2024 7:29 PM EDT Impressions 12/19/2024 7:30 PM EDT Osteopenia. The NOF guidelines recommend that FDA approved medical therapies be considered in postmenopausal women and men age >50 years with a: i. Hip or vertebral (clinical or morphometric) fracture ii. T score of < -2.5 at the spine or hip iii. 10 year fracture probability by FRAX of >3% for hip fracture, or >20% for major osteoporotic fracture PLEASE NOTE: W.H.O. classification is based on lowest measured density at the spine, femoral neck, or total hip.This classification has prognostic significance when applied to post menopausal women and older men. 1) The World Health Organization defines low BMD as follows: T-score Normal at or > -1 Osteopenia < -1 and > -2.5 Osteoporosis at or < -2.5 without fractures Established osteoporosis < -2.5 with fractures -------- FINAL REPORT -------- Dictated By: George Rodriguez Dictated Date: 12/19/2024 19:29 ET Assigned Physician: George Rodriguez Reviewed and Electronically Signed By: George Rodriguez Signed Date: 12/19/2024 19:30 ET Workstation ID: [id number] Transcribed By: Self Edit Transcribed Date: 12/19/2024 19:29 ET Narrative 12/19/2024 7:30 PM EDT Clinical history: postmenopausal osteoporosis Scans of the lumbar spine and hips were performed on a [employer] fan beam bone densitometer. Bone mineral density measurements and associated T and Z scores respectively are as follows: Lumbar Spine: L1-L4 BMD: 0.897 g/cm2 T-Score: -1.4 Z-Score: 0.8 Compared with the prior study dated 05/25/2017, the BMD reading has increased which is not statistically significant Left Proximal Femur: Neck BMD: 0.671 g/cm2 T-Score: -1.6 Z-Score: 0.2 Total BMD: 0.923 g/cm2 T-Score: -0.2 Z-Score: 1.4 Compared with the prior study the mean BMD reading in the total left hip has increased which is statistically significant Compared with standards for the young adult, lowest measured bone density places the patient in the W.H.O. osteopenic range. FRAX 10 year probability of major osteoporotic fracture: 9.2% FRAX 10 year probability of hip fracture: 1.3% Population: [place] () Procedure Note George Rodriguez MD - 12/19/2024 Clinical history: postmenopausal osteoporosis Scans of the lumbar spine and hips were performed on a [employer] beam bone densitometer. Bone mineral density measurements and associated T and Z scoresrespectively are as follows: Lumbar Spine: L1-L4 BMD: 0.897 g/cm2 T-Score: -1.4 Z-Score: 0.8 Compared with the prior study dated 05/25/2017, the BMD reading hasincreased which is not statistically significant Left Proximal Femur: Neck BMD: 0.671 g/cm2 T-Score: -1.6 Z-Score: 0.2 Total BMD: 0.923 g/cm2 T-Score: -0.2 Z-Score: 1.4 Compared with the prior study the mean BMD reading in the total left hiphas increased which is statistically significant Compared with standards for the young adult, lowest measured bone densityplaces the patient in the W.H.O. osteopenic range. FRAX 10 year probability of major osteoporotic fracture: 9.2% FRAX 10 year probability of hip fracture: 1.3% Population: [place] () IMPRESSION: Osteopenia. The NOF guidelines recommend that FDA approved medical therapies beconsidered in postmenopausal women and men age >50 years with a: i. Hip or vertebral (clinical or morphometric) fracture ii. T score of < -2.5 at the spine or hip iii. 10 year fracture probability by FRAX of >3% for hip fracture, or >20%for major osteoporotic fracture PLEASE NOTE: W.H.O. classification is based on lowest measured density at the spine,femoral neck, or total hip.This classification has prognostic significancewhen applied to post menopausal women and older men. 1) The World Health Organization defines low BMD as follows: T-score Normal at or > -1 Osteopenia < -1 and > -2.5 Osteoporosis at or < -2.5 withoutfractures Established osteoporosis < -2.5 with fractures -------- FINAL REPORT -------- Dictated By: George Rodriguez Dictated Date: 12/19/2024 19:29 ET Assigned Physician: George Rodriguez Reviewed and Electronically Signed By: George Rodriguez Signed Date: 12/19/2024 19:30 ET Workstation ID: [id number] Transcribed By: Self Edit Transcribed Date: 12/19/2024 19:29 ET [facility] IMG DXA PROCEDURES Final Result * MG Mammo Digital Screening w Shai bilat (12/15/2024 3:24 PM EDT) Anatomical Region Laterality Modality Breast Bilateral Mammography 12/18/2024 10:4 5 AM EDT Impressions 12/18/2024 11:01 AM EDT 1. No mammographic evidence of malignancy 2. Scattered fibroglandular tissue BI-RADS CATEGORY: 2 - BENIGN RECOMMENDATION: Screening bilateral mammogram is recommended in 1 year. Mammo Location: [facility], [address] [place] [address], [facility], . -------- FINAL REPORT -------- Dictated By: George Rodriguez Dictated Date: 12/18/2024 10:45 ET Assigned Physician: George Rodriguez Reviewed and Electronically Signed By: George Rodriguez Signed Date: 12/18/2024 11:01 ET Workstation ID: [id number] Transcribed By: Self Edit Transcribed Date: 12/18/2024 10:45 ET Narrative 12/18/2024 11:01 AM EDT A BILATERAL DIGITAL 3D SCREENING MAMMOGRAPHY HISTORY: Routine screening. Family history of breast cancer in mother. COMPARISON: Multiple priors dating back to 06/14/2020 Technique: Bilateral full field digital mammography (3D) was performed using standard CC and MLO projections CAD was used to evaluate this mammogram. FINDINGS: Right: No suspicious masses, groups of microcalcification or areas of architectural distortion identified. Stable typically benign parenchymal asymmetries. Left: No suspicious masses, groups of microcalcification or areas of architectural distortion identified. Stable typically benign parenchymal asymmetries. Typically benign scattered masses BREAST DENSITY: B - There are scattered areas of fibroglandular density. Procedure Note George Rodriguez MD - 12/18/2024 A BILATERAL DIGITAL 3D SCREENING MAMMOGRAPHY HISTORY: Routine screening. Family history of breast cancer in mother. COMPARISON: Multiple priors dating back to 06/14/2020 Technique: Bilateral full field digital mammography (3D) was performedusing standard CC and MLO projections CAD was used to evaluate this mammogram. FINDINGS: Right: No suspicious masses, groups of microcalcification or areas ofarchitectural distortion identified. Stable typically benign parenchymalasymmetries. Left: No suspicious masses, groups of microcalcification or areas ofarchitectural distortion identified. Stable typically benign parenchymalasymmetries. Typically benign scattered masses BREAST DENSITY: B - There are scattered areas of fibroglandular density. IMPRESSION: 1. No mammographic evidence of malignancy 2. Scattered fibroglandular tissue BI-RADS CATEGORY: 2 - BENIGN RECOMMENDATION: Screening bilateral mammogram is recommended in 1 year. Mammo Location: [facility], [address] [place] [address], [id number], . -------- FINAL REPORT -------- Dictated By: George Rodriguez Dictated Date: 12/18/2024 10:45 ET Assigned Physician: George Rodriguez Reviewed and Electronically Signed By: George Rodriguez Signed Date: 12/18/2024 11:01 ET Workstation ID: [id number] Transcribed By: Self Edit Transcribed Date: 12/18/2024 10:45 ET Key [facility] IMG BI PROCEDURES Final Result * Depression Screening (04/25/2024) Depression Screening abstracted Historical Provider HEALTH MAINTENANCE Final Result * Cervical Cancer Screening: HPV (07/18/2020) Cervical Cancer Screening: HPV negative, abstracted Historical Provider HEALTH MAINTENANCE Final Result * Colonoscopy (03/13/2016) Pathologist [facility] Colonoscopy no interpretation , abstracted Anatomical Region Laterality Modality Other Historical Provider HEALTH MAINTENANCE Final Result * Hepatitis C Screening (11/09/2014) Pathologist [facility] Hepatitis C Screening abstracted Historical Provider HEALTH MAINTENANCE Final Result from Last 3 Months or Most Recently Relevant to Health Maintenance Insurance [employer] MEDICARE MEDICAID - [place] Care Teams General Operations Manager Relationship Specialty Start Date End Date Zeke Zuniga MD [address] [place] [address] PCP - General Internal Medicine 02/05/22
--- OUTSIDE RECORDS SUMMARY | 2025-07-26 18:36 | XMS_ITS | Encounter Summary ---
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 Spinal stenosis of cervical region Spinal stenosis of lumbar region without neurogenic claudication Key Rivera PA [address] [place] [address] Phone: tel: fax: Neurosurgery [address] [address] Phone: tel: fax: Referral ID Status Reason Start Date Expiration Date V isits Requested Visits Authorized [id number] Closed Specialty Services Required 07/03/2025 07/03/2026 1 1 Encounter Details Date Type Department Care Team (Late st Contact Info) Description 07/03/2025 Results Follow-Up Adult Medicine [address] [phone] Key Rivera PA [address] [place] [address] Social History Tobacco Use Types Packs/Day Years Used Date Smoking Tobacco: Never Smokeless Tobacco: Never Alcohol Use Standard Drinks/Week Comments Yes 0 [...] care for your loved ones. For example, children's choir director or elderly care for an older adult? [...] Orientation Straight 06/14/2024 8: 53 AM EST documented as of this encounter Plan of Treatment Upcoming Encounters Date Type Department Care Team (Late st Contact Info) Description 10/17/2025 12:30 PM EDT Consult Bariatric Surgery - [address] [phone] Concepcion Bartlett, RD [address] [phone] 11/27/2025 2:30 PM EDT Office Visit Bariatric Surgery - [address] [phone] Dwight Irizarry MD [address] [place] [phone] 01/01/2026 11:00 AM EDT Office Visit Adult Medicine [address] [phone] Zeke Zuniga MD [address] [place] [address] Scheduled Referrals Name Type Priority Associated Diagnoses Orde r Schedule Ambulatory referral to Neurosurgery Outpatient Referral Routine 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 Spinal stenosis of cervical region Spinal stenosis of lumbar region without neurogenic claudication 1 Occurrences starting 07/03/2025 until 07/03/2026 documented as of this encounter Visit Diagnoses Diagnosis Osteoarthritis of cervical spine with myelopathy- Primary Osteoarthritis of lumbar spine with myelopathy Spinal stenosis of cervical region Spinal stenosis in cervical region Spinal stenosis of lumbar region without neurogenic claudication documented in this encounter Additional Health Concerns Assessment Noted Time PHQ-9 Depression Total Score: 0 01/30/20 25 3:47 PM EDT documented as of this encounter Care Teams Allied Health Instructor Relationship Specialty Start Date End Date Zeke Zuniga MD [address] [place] [address] PCP - General Internal Medicine 02/05/22 documented as of this encounter
--- OUTSIDE RECORDS SUMMARY | 2025-07-26 18:36 | XMS_ITS | Encounter Summary ---
Author Organization [place] [address] Care Team Providers Care Hydroelectric Station Chief Name Role Phone Zeke Zungia MD Primary Care Provider [phone]- [phone] Encounter Details Date Type Department Care Team ([facility] st Contact Info) Description 07/26/2025 Telephone Bariatric Surgery - [address] [place] [address] Dwight Irizarry MD [address] [place] [phone] Social History Tobacco Use Types Packs/Day Years [...] for your loved ones. For example, child care center administrator or elderly care for an older adult? [...] AM EST documented as of this encounter Progress Notes * Linda Hernandez - 07/26/2025 9:56 AM EST Patient denied by [facility] medicare - she's requesting a PA be sent to her secondary Medicaid. I gave her a heads up that as of Aug they were no longer covering weight loss medication. documented in this encounter Plan of Treatment Upcoming Encounters Date Type Department Care Team (Late st Contact Info) Description 10/17/2025 12:30 PM EDT Consult Bariatric Surgery - [place] [address] [phone] Concepcion Bartlett, RD [address] [phone] 11/27/2025 2:30 PM EDT Office Visit Bariatric Surgery - [place] [address] [phone] Dwight Irizarry MD [address] [place] [phone] 01/01/2026 11:00 AM EDT Office Visit Adult Medicine [address] [phone] Zeke Zuniga MD [address] [place] [address] documented as of this encounter Visit Diagnoses Not on filedocumented in this encounter Additional Health Concerns Assessment Noted Time PHQ-9 Depression Total Score: 0 01/30/20 25 3:47 PM EDT documented as of this encounter Care Teams Hydroelectric Station Chief Relationship Specialty Start Date End Date Zeke Zuniga MD [address] [place] [address] PCP - General Internal Medicine 02/05/22 documented as of this encounter
--- OUTSIDE RECORDS SUMMARY | 2025-07-26 18:37 | XMS_ITS | Data Portability ---
Author Organization [facility] [employer], [employer] Address [address] [place] [address] Care Team Providers Care Cellars Supervisor Name Role Phone TERRELL BOWMAN Referring Provider TERRELL BOWMAN Primary Care Provider TERRELL BOWMAN Referring Provider [phone] Assessment Encounter Date Assessment Date Assessment LastModified by Organization Details LastModified Time 05/27/2022 05/27/2022 IMPRESSION: Headaches; upper quandrant myofascial syndrome.. --Propranolol, started mid 2020 helping headaches as adjunct to Aimovig, started with great success May 2019 but then with waning benefit, which was in itself adjunct to levetiracetam which had helped greatly before weaning benefit in December 2018. --Aimovig had already apparently not been helping too much in 2019, after significant benefit starting June 06, 2019. This is why we started and titrated propranolol which helped significantly. The only mild worsening of the headaches with forced discontinuation of Aimovig February 2021 due to insurance co-pay provide stronger evidence of the transient nature of Aimovig benefit. --currently four headaches per month lasting up to 12 hours r headaches per month. We again discussed that the first best intervention for the headaches that are lasting 3 hours is to take the rizatriptan immediately at the beginning of headache. I emphasized that if this does not help, she should schedule follow-up and we will look for another better migraine breakthrough medication. We will keep propranolol 30 mg twice a day for migraine prevention along with the levetiracetam. To review potential directions the future again: Amitriptyline with slight decrease of trazodone has not seemed workable as she seems to need all of her trazodone for sleep disorder. However, today, as she has significant body pain from fibromyalgia, I suggested she discuss with primary care decreasing the trazodone a little to make room for some amitriptyline to see if it helps for her body pain. There may be some slight benefit for her headache if she goes this path. 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 There has previously been mostly good benefit from Keppra as migraine preventative. Levetiracetam increase is on the table. She occasionally has some mid morning tiredness and is not sure if this is due to levetiracetam. There is history of significant benefit from a set of trigger point injection sessions, once in mid 2014 and a second time and 2014. Trigger point injections repeat could be considered at a follow-up. Aimovig switch to a different CGRP inhibitor has low likelihood of helping, I believe. Patient initial reports on work at [facility] before starting work with me here: Migraine headache syndrome is not helped by Topamax. Amitriptyline has not helped. She thinks that perhaps she tried propranolol since she tried everything. She has emphasized that she would not be interested in Botox. To review associated issues from early 2014: Laboratories reveal very mildly elevated homocysteine and mildly low serum magnesium (but not magnesium red blood cell). Mineral supplementation is only mildly indicated given these only mild abnormalities. Her symptoms are better. No intervention is indicated from neurological perspective. Encounter is with telemedicine. Parts of exam, such as observation of appendicular tone, could not be done via telemedicine, so these parts of exam which is detailed below are from previous in office visit. PLAN Kisha Vegas May 27, 2022 MIGRAINE PREVENTION: CONTINUE propranolol (immediate release) 10 mg tablets, 3 tablets every 12 hours CONTINUE levetiracetam 500 mg tablets 2.5 tablets every 12 hours MIGRAINE BREAKTHROUGH MEDICATION: CONTINUE Maxalt (generic rizatriptan)10 mg tablets, 12 tablets/11 refills, one tablet by mouth as needed for migraine, may repeat once after one half hour, maximum 2/day, 6/week. The medication is most useful when taken at the beginning of the headache, as opposed to after the headache has already gotten intense or been going on for a while. FOR MUSCULAR PART OF HEADACHE CONTINUE neck and upper back stretching several times a day as preventative for return of upper back/neck tightness and prominent headaches. FOR SLEEP DISORDER, MANAGED BY PRIMARY CARE, CONTINUE: Trazodone 300 mg nightly Discontinued, discussed March 2020: Melatonin 20 mg nightly ([id number]) FOR DEPRESSION WHICH HAS TRIGGERED HEADACHE AT TIMES, CONTINUE, MANAGED BY PRIMARY CARE: sertraline 125 mg daily Follow-up in 11 months yasmine Not available 05/27/2022 12:31:13 04/29/2023 04/29/2023 IMPRESSION: Headaches; upper quandrant myofascial syndrome.. --Propranolol, started mid 2020 helping headaches as adjunct to Aimovig, started with great success May 2019 but then with waning benefit, which was in itself adjunct to levetiracetam which had helped greatly before weaning benefit in December 2018. --Aimovig had already apparently not been helping too much in 2019, after significant benefit starting June 06, 2019. This is why we started and titrated propranolol which helped significantly. The only mild worsening of the headaches with forced discontinuation of Aimovig February 2021 due to insurance co-pay provide stronger evidence of the transient nature of Aimovig benefit. --every other month headaches , lasting 2 hours hours with rizatriptan We again discussed that the first best intervention for the headaches that are lasting 3 hours is to take the rizatriptan immediately at the beginning of headache. We discussed that I think plausible that amitriptyline --added in the evening for sleep -- in place of 150 mg of the trazodone -- has helped her headaches, even though it has not incrementally improved her sleep. She is happy with the current state of migraine treatment. I will make no changes. We will keep propranolol 30 mg twice a day for migraine prevention along with the levetiracetam. She was not very happy at May 27, 2022 follow-up and stated that a big part of this was fibromyalgia pain. She is much happier today. Headaches are less but they were only four times a month last year. She remembers no benefit of the amitriptyline for fibromyalgia but I wonder if there was some subtle benefit that has subtly contributor to her being more happy today. The only other reason she cannot say for her being in a good mood generally in recent times is moving in with her daughter. This happened a year and a half ago, September 2021. I will continue to defer to primary care for issues relating to sleep and fibromyalgia (now that her watch crystal grinder has discharged her). To review potential directions the future again: However, today, as she has significant body pain from fibromyalgia, I suggested she discuss with primary care decreasing the trazodone a little to make room for some amitriptyline to see if it helps for her body pain. There may be some slight benefit for her headache if she goes this path. 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 There has previously been mostly good benefit from Keppra as migraine preventative. Levetiracetam increase is on the table. She occasionally has some mid morning tiredness and is not sure if this is due to levetiracetam. There is history of significant benefit from a set of trigger point injection sessions, once in mid 2014 and a second time and 2014. Trigger point injections repeat could be considered at a follow-up. Aimovig switch to a different CGRP inhibitor has low likelihood of helping, I believe. Patient initial reports on work at [facility] before starting work with me here: Migraine headache syndrome is not helped by Topamax. Amitriptyline has not helped. She thinks that perhaps she tried propranolol since she tried everything. She has emphasized that she would not be interested in Botox. To review associated issues from early 2014: Laboratories reveal very mildly elevated homocysteine and mildly low serum magnesium (but not magnesium red blood cell). Mineral supplementation is only mildly indicated given these only mild abnormalities. Her symptoms are better. No intervention is indicated from neurological perspective. Encounter is with telemedicine. Parts of exam, such as observation of appendicular tone, could not be done via telemedicine, so these parts of exam which is detailed below are from previous in office visit. PLAN Kisha Martinezdeisi April 29, 2023 MIGRAINE PREVENTION: CONTINUE propranolol (immediate release) 10 mg tablets, 3 tablets every 12 hours CONTINUE levetiracetam 500 mg tablets 2.5 tablets every 12 hours MIGRAINE BREAKTHROUGH MEDICATION: CONTINUE Maxalt (generic rizatriptan)10 mg tablets, 12 tablets/11 refills, one tablet by mouth as needed for migraine, may repeat once after one half hour, maximum 2/day, 6/week. The medication is most useful when taken at the beginning of the headache, as opposed to after the headache has already gotten intense or been going on for a while. FOR MUSCULAR PART OF HEADACHE CONTINUE neck and upper back stretching several times a day as preventative for return of upper back/neck tightness and prominent headaches. FOR SLEEP DISORDER, MANAGED BY PRIMARY CARE, CONTINUE: Trazodone 150 mg nightly Amitrptyline 25mg nightly Discontinued, discussed March 2020: Melatonin 20 mg nightly ([id number]) FOR DEPRESSION WHICH HAS TRIGGERED HEADACHE AT TIMES, CONTINUE, MANAGED BY PRIMARY CARE: sertraline 125 mg daily Follow-up in 8 months yasmine Not available 04/29/2023 14:52:45 12/28/2023 12/28/2023 IMPRESSION: Headaches; upper quandrant myofascial syndrome.. --Propranolol, started mid 2020 helping headaches as adjunct to Aimovig, started with great success May 2019 but then with waning benefit, which was in itself adjunct to levetiracetam which had helped greatly before weaning benefit in December 2018. --Aimovig had already apparently not been helping too much in 2019, after significant benefit starting June 06, 2019. This is why we started and titrated propranolol which helped significantly. The only mild worsening of the headaches with forced discontinuation of Aimovig February 2021 due to insurance co-pay provide stronger evidence of the transient nature of Aimovig benefit. --April 29, 2023 every other month headaches , lasting 2 hours hours with rizatriptan; Amitriptyline replacing part of trazodone, by primary care, possibly contributing to headache reduction, although it did not previously help in trial with [facility] --December 28, 2023 No migrainous headaches needing rizatriptan; more moderate tension headache going away in 1 to 2 hours with Excedrin Migraine and warm compress. >>>>>>>>>>>>Septem 2022 We again discussed that the first best intervention for the headaches that are lasting 3 hours is to take the rizatriptan immediately at the beginning of headache. We discussed that I think plausible that amitriptyline --added in the evening for sleep -- in place of 150 mg of the trazodone -- has helped her headaches, even though it has not incrementally improved her sleep. She is happy with the current state of migraine treatment. I will make no changes. We will keep propranolol 30 mg twice a day for migraine prevention along with the levetiracetam. She was not very happy at May 27, 2022 follow-up and stated that a big part of this was fibromyalgia pain. She is much happier today. Headaches are less but they were only four times a month last year. She remembers no benefit of the amitriptyline for fibromyalgia but I wonder if there was some subtle benefit that has subtly contributor to her being more happy today. The only other reason she cannot say for her being in a good mood generally in recent times is moving in with her daughter. This happened a year and a half ago, September 2021. I will continue to defer to primary care for issues relating to sleep and fibromyalgia (now that her watch crystal grinder has discharged her). >>>>>>>>>>>>Novemb er 2020 I suggested she discuss with primary care decreasing the trazodone a little to make room for some amitriptyline to see if it helps for her body pain. There may be some slight benefit for her headache if she goes this path. 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 >>>>>>>>>>>>potent ial future directions : Levetiracetam increase is on the table. But, has tiredness and such an increase could add to it. There is history of significant benefit from a set of trigger point injection sessions, once in mid 2014 and a second time and 2014. Trigger point injections repeat could be considered at a follow-up. a different CGRP inhibitor -- Aimovig has failed -- has low likelihood of helping, 15-20% in one open label switching study,. Patient initial reports on work at [facility] before starting work with me here: Migraine headache syndrome is not helped by Topamax. Amitriptyline has not helped. She thinks that perhaps she tried propranolol since she tried everything. She has emphasized that she would not be interested in Botox. To review associated issues from early 2015: Laboratories reveal very mildly elevated homocysteine and mildly low serum magnesium (but not magnesium red blood cell). Mineral supplementation is only mildly indicated given these only mild abnormalities. Her symptoms are better. No intervention is indicated from neurological perspective. PLAN Kisha Vegas December 28, 2023 MIGRAINE PREVENTION: CONTINUE propranolol (immediate release) 10 mg tablets, 3 tablets every 12 hours CONTINUE levetiracetam 500 mg tablets 2.5 tablets every 12 hours MIGRAINE BREAKTHROUGH MEDICATION: CONTINUE Maxalt (generic rizatriptan)10 mg tablets, 12 tablets/11 refills, one tablet by mouth as needed for migraine, may repeat once after one half hour, maximum 2/day, 6/week. The medication is most useful when taken at the beginning of the headache, as opposed to after the headache has already gotten intense or been going on for a while. FOR MUSCULAR PART OF HEADACHE CONTINUE neck and upper back stretching several times a day as preventative for return of upper back/neck tightness and prominent headaches. FOR SLEEP DISORDER, MANAGED BY PRIMARY CARE, CONTINUE: Trazodone 150 mg ->100mg early 2023 nightly Amitrptyline 25mg nightly Discontinued, discussed March 2020: Melatonin 20 mg nightly ([id number]) FOR DEPRESSION WHICH HAS TRIGGERED HEADACHE AT TIMES, CONTINUE, MANAGED BY PRIMARY CARE: sertraline 125 mg daily Follow-up in 6 months yasmine Not available 12/28/2023 14:47:34 06/27/2024 06/27/2024 IMPRESSION: Headaches; upper quandrant myofascial syndrome.. --Propranolol, started mid 2020 helping headaches as adjunct to Aimovig, started with great success May 2019 but then with waning benefit, which was in itself adjunct to levetiracetam which had helped greatly before weaning benefit in December 2018. --Aimovig had already apparently not been helping too much in 2019, after significant benefit starting June 06, 2019. This is why we started and titrated propranolol which helped significantly. The only mild worsening of the headaches with forced discontinuation of Aimovig February 2021 due to insurance co-pay provide stronger evidence of the transient nature of Aimovig benefit. --April 29, 2023 every other month headaches , lasting 2 hours hours with rizatriptan; Amitriptyline replacing part of trazodone, by primary care, possibly contributing to headache reduction, although it did not previously help in trial with [facility] --December 28, 2023 No migrainous headaches needing rizatriptan; more moderate tension headache going away in 1 to 2 hours with Excedrin Migraine and warm compress. --June 27, 2024 propranolol 30 mg twice daily and levetiracetam 1250 mg twice daily managing migraines well although not perfectly, rizatriptan 10 mg and laying one breakthrough over 6 months perfectly. Every other week mild headache/neck pain treated well with Excedrin Migraine. >>>>>>>>>>>>Novem 2023 She is happy with the regimen for her migraine syndrome and we will make no changes. Amitriptyline, primary care has prescribed for fibromyalgia, has been discontinued for 2 to 3 months and there has been no clear worsening of migraines. Therefore, any migraine prevention it was providing was insignificant compared to levetiracetam and propranolol which she continues. The number of migraines grows from the insignificant one event in 6 months or more than that in the near future, we will reevaluate. >>>>>>>>>>>>Septem 2022 We again discussed that the first best intervention for the headaches that are lasting 3 hours is to take the rizatriptan immediately at the beginning of headache. We discussed that I think plausible that amitriptyline --added in the evening for sleep -- in place of 150 mg of the trazodone -- has helped her headaches, even though it has not incrementally improved her sleep. She is happy with the current state of migraine treatment. I will make no changes. We will keep propranolol 30 mg twice a day for migraine prevention along with the levetiracetam. She was not very happy at May 27, 2022 follow-up and stated that a big part of this was fibromyalgia pain. She is much happier today. Headaches are less but they were only four times a month last year. She remembers no benefit of the amitriptyline for fibromyalgia but I wonder if there was some subtle benefit that has subtly contributor to her being more happy today. The only other reason she cannot say for her being in a good mood generally in recent times is moving in with her daughter. This happened a year and a half ago, September 2021. I will continue to defer to primary care for issues relating to sleep and fibromyalgia (now that her watch crystal grinder has discharged her). >>>>>>>>>>>>Novemb er 2020 I suggested she discuss with primary care decreasing the trazodone a little to make room for some amitriptyline to see if it helps for her body pain. There may be some slight benefit for her headache if she goes this path. 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 >>>>>>>>>>>>potent ial future directions : Levetiracetam increase is on the table. But, has tiredness and such an increase could add to it. There is history of significant benefit from a set of trigger point injection sessions, once in mid 2014 and a second time and 2014. Trigger point injections repeat could be considered at a follow-up. a different CGRP inhibitor -- Aimovig has failed -- has low likelihood of helping, 15-20% in one open label switching study,. Patient initial reports on work at [facility] before starting work with me here: Migraine headache syndrome is not helped by Topamax. Amitriptyline has not helped. She thinks that perhaps she tried propranolol since she tried everything. She has emphasized that she would not be interested in Botox. To review associated issues from early 2014: Laboratories reveal very mildly elevated homocysteine and mildly low serum magnesium (but not magnesium red blood cell). Mineral supplementation is only mildly indicated given these only mild abnormalities. Her symptoms are better. No intervention is indicated from neurological perspective. PLAN Kisha Vegas June 27, 2024 MIGRAINE PREVENTION: CONTINUE propranolol (immediate release) 10 mg tablets, 3 tablets every 12 hours CONTINUE levetiracetam 500 mg tablets 2.5 tablets every 12 hours MIGRAINE BREAKTHROUGH MEDICATION: CONTINUE Maxalt (generic rizatriptan)10 mg tablets, 12 tablets/11 refills, one tablet by mouth as needed for migraine, may repeat once after one half hour, maximum 2/day, 6/week. The medication is most useful when taken at the beginning of the headache, as opposed to after the headache has already gotten intense or been going on for a while. FOR MUSCULAR PART OF HEADACHE CONTINUE neck and upper back stretching several times a day as preventative for return of upper back/neck tightness and prominent headaches. FOR SLEEP DISORDER, MANAGED BY PRIMARY CARE, CONTINUE: Trazodone 150 mg ->100mg early 2023 nightly Discontinued, discussed March 2020: Melatonin 20 mg nightly ([id number]) FOR DEPRESSION WHICH HAS TRIGGERED HEADACHE AT TIMES, CONTINUE, MANAGED BY PRIMARY CARE: sertraline 50 mg daily Follow-up in 8 months yasmine Not available 06/27/2024 13:03:14 02/27/2025 02/27/2025 IMPRESSION: Headaches; upper quandrant myofascial syndrome.. --Propranolol, started mid 2020 helping headaches as adjunct to Aimovig, started with great success May 2019 but then with waning benefit, which was in itself adjunct to levetiracetam which had helped greatly before weaning benefit in December 2018. --Aimovig had already apparently not been helping too much in 2019, after significant benefit starting June 06, 2019. This is why we started and titrated propranolol which helped significantly. The only mild worsening of the headaches with forced discontinuation of Aimovig February 2021 due to insurance co-pay provide stronger evidence of the transient nature of Aimovig benefit. --April 29, 2023 every other month headaches , lasting 2 hours hours with rizatriptan; Amitriptyline replacing part of trazodone, by primary care, possibly contributing to headache reduction, although it did not previously help in trial with [facility] --December 28, 2023 No migrainous headaches needing rizatriptan; more moderate tension headache going away in 1 to 2 hours with Excedrin Migraine and warm compress. --June 27, 2024 propranolol 30 mg twice daily and levetiracetam 1250 mg twice daily managing migraines well although not perfectly, rizatriptan 10 mg and laying one breakthrough over 6 months perfectly. Every other week mild headache/neck pain treated well with Excedrin Migraine. --February 27, 2025 no migraines over 8 months on levetiracetam 1250 mg twice daily and propranolol 30 mg twice daily. >>>>>>>>>>>>February 27, 2025 She wonders about a medication decrease as she is on so many medications! I suggest reduction of levetiracetam 500 mg tablets by half tablet -> 2 tablets twice a day, 1000 mg twice a day. This is on the chance that levetiracetam is contributing to her tiredness in addition to the contribution from fibromyalgia. I will leave the prescription the same so if worsening migraines she can increase back to 1250 mg twice daily. >>>>>>>>>>>>Novem er 2023 She is happy with the regimen for her migraine syndrome and we will make no changes. Amitriptyline, primary care has prescribed for fibromyalgia, has been discontinued for 2 to 3 months and there has been no clear worsening of migraines. Therefore, any migraine prevention it was providing was insignificant compared to levetiracetam and propranolol which she continues. The number of migraines grows from the insignificant one event in 6 months or more than that in the near future, we will reevaluate. >>>>>>>>>>>>Septem 2022 We again discussed that the first best intervention for the headaches that are lasting 3 hours is to take the rizatriptan immediately at the beginning of headache. We discussed that I think plausible that amitriptyline --added in the evening for sleep -- in place of 150 mg of the trazodone -- has helped her headaches, even though it has not incrementally improved her sleep. She is happy with the current state of migraine treatment. I will make no changes. We will keep propranolol 30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 migraine occurs about once a year. Solu-Medrol pack helps for this. She takes tizanidine both in the morning and at night for the muscle tightness in her posterior shoulders and neck. She has had physical therapy with home exercises. This helps during the set of sessions but benefit receives 3 weeks after she stops physical therapy--year--she keeps up the home exercises. She has a long history of problems getting to sleep and staying asleep. She eventually titrated trazodone to 200 mg nightly and with this she gets to sleep. She still wakes up at night. She does not think she snores. She does clench her teeth. She mentioned she is a nose breather. When she has a cold, she wakes up because she cannot breathe. She does not know why she wakes up at night when she does not have a cold. She is tired during the day. She has no depression or anxiety. Yunior Lewis MD [address] [place] [address] [place], [id number], [facility] 02/27/2025 12:42:39 OBGyn Episode No OBEpisode recorded.
== END 2025-07-26 15:15 | disposition home or self-care (01) ==
LOC: HO.PMC 14:29
PROVIDERS: PCP Internal Medicine; Referring Provider Physician Assistant; Visit Provider Nurse Practitioner Family
DX: M47.816 Spondylosis without myelopathy or radiculopathy, lumbar region (principal); M79.7 Fibromyalgia; E66.9 Obesity, unspecified; M47.812 Spondylosis without myelopathy or radiculopathy, cervical region; G44.86 Cervicogenic headache; M54.51 Vertebrogenic low back pain; M62.838 Other muscle spasm
CPT/HCPCS: 99204